=== PATIENT | male | born 1970 | race American Indian/Alaskan Native ===

== ENCOUNTER 2017-02-01 13:20 | Emergency (ER) | payer BC ==
[2017-02-01 13:34] VITALS: TEMP 98.4
[2017-02-01 14:44] VITALS: BP 156/98; PULSE 72; RESP 18
[2017-02-01 14:50] VITALS: O2SAT 98
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
--- NOTE | 2017-02-03 07:58 | CARD ---
APPROVED REPORT EKG Measurement Heart [id number] MD [id number] <Conclusion> Sinus rhythm with marked sinus arrhythmia Minimal voltage criteria for LVH, may be normal variant Borderline ECG
== END 2017-02-01 16:05 | disposition home or self-care (01) ==
LOC: C.ER 13:20
DX: F41.9 Anxiety disorder, unspecified (principal)